=== PATIENT | female | born 1965 | race Hispanic/Latino ===

== ENCOUNTER → 2022-02-28 | Outpatient (CLI) | payer BC | END | disposition home or self-care (01) | LOC: RAH 08:55 | PROVIDERS: ATTEND Student in an Organized Health Care Education/Training Program | DX: M24.851 Other specific joint derangements of right hip, not elsewhere classified (principal); Z96.642 Presence of left artificial hip joint | CPT/HCPCS: 73721 ==

== ENCOUNTER → 2022-08-07 | Outpatient (CLI) | payer OTHER | END | disposition home or self-care (01) | LOC: OIH 13:58 | PROVIDERS: ATTEND Family Medicine | DX: Z13.6 Encounter for screening for cardiovascular disorders (principal) | CPT/HCPCS: 75571 ==

== ENCOUNTER 2023-01-22 16:00 | Observation (INO) | payer BC ==
[~2023-01-22] VITALS: Ht 162.6 cm; Wt 80.4 kg
[2023-01-24 11:13] VITALS: BP 152/69; PULSE 85; RESP 18
[2023-01-24] MEDS ORDERED: OMEG-116 PO (12:46)
[2023-01-24] MEDS ORDERED: CALC-866 PO (12:46)
[2023-01-24] MEDS ORDERED: CETI10TA57 PO (12:46)
[2023-01-24] MEDS ORDERED: POTA99CA PO (12:46)
[2023-01-24] MEDS ORDERED: SUMA25TA9 PO (12:46)
[2023-01-24] MEDS ORDERED: CYCL-309 PO (12:46)
[2023-01-24] MEDS ORDERED: OM3/1CAP3 PO (12:46)
[2023-01-24] MEDS ORDERED: OMEP40CA21 PO (12:46)
[2023-01-24] MEDS ORDERED: BIOT1TAB7 PO (12:46)
[2023-01-24] MEDS ORDERED: TRAZ-185 PO (12:46)
[2023-01-24] MEDS ORDERED: FOLI1 PO (12:46)
[2023-01-24] MEDS ORDERED: FERR-82 PO (12:46)
[2023-01-24] MEDS ORDERED: MAGN400C PO (12:46)
[2023-01-29] VITALS (29 sets, daily range): BP systolic 103–175; BP diastolic 52–128; PULSE 59–97; RESP 12–20; O2SAT 98
[2023-01-29] MEDS ORDERED: LACTATED RINGERS 1000ML 1,000 ML IV ONE (05:16)
[2023-01-29] MEDS: CEFAZOLIN SODIUM 2 GM VIAL ONE ×2 (05:45→07:22)
[2023-01-29] MEDS ORDERED: DEXAMETHASONE SOD PHOSPHATE 10MG/ML 1ML VIAL ONE (06:24)
[2023-01-29] MEDS ORDERED: SUCCINYLCHOLINE 200MG/10ML SYR ONE (06:24)
[2023-01-29] MEDS ORDERED: LIDOCAINE PF 100MG/5ML (2%) SYRINGE 5ML ONE (06:24)
[2023-01-29] MEDS ORDERED: ONDANSETRON 4MG INJ ONE (06:24)
[2023-01-29] MEDS ORDERED: ROCURONIUM BROMIDE 10MG/1ML 5ML VL ONE ×2 (06:25→08:11)
[2023-01-29] MEDS ORDERED: GLYCOPYRROLATE 1 MG/5 ML SYRINGE ONE (06:25)
[2023-01-29] MEDS ORDERED: MIDAZOLAM HCL 1 MG/ML 2ML VIAL ONE ×2 (06:25→07:22)
[2023-01-29] MEDS ORDERED: FENTANYL CITRATE PF 50 MCG/1 ML 2ML VIAL ONE ×2 (06:25→07:25)
[2023-01-29] MEDS ORDERED: NEOSTIGMINE METHYLSULFATE 1MG/ML IV ONE (06:25)
[2023-01-29] MEDS ORDERED: PROPOFOL 10 MG/ML 20ML VIAL IV ONE ×2 (06:25→07:35)
[2023-01-29] MEDS ORDERED: EPINEPHRINE PF 1MG (1:1,000) 1 MG/ML AMP ONE (06:28)
[2023-01-29] MEDS ORDERED: 0.9%NACL 48.45 ML, ROPIVACAINE 0.5% 49.25ML, EPINEPH 0.5MG KETOROLAC 30MG,CLONIDINE 80MCG IV PRN ×5 (07:00)
[2023-01-29] MEDS ORDERED: TRANEXAMIC ACID 1000MG/10ML ONE (07:09)
[2023-01-29] MEDS ORDERED: TRANEXAMIC ACID 1000MG/10ML IV ONE (07:53)
[2023-01-29] MEDS ORDERED: CEFAZOLIN SODIUM 1 GM VIAL ONE (08:05)
[2023-01-29] MEDS ORDERED: GENTAMICIN SULFATE 80 MG/2 ML VIAL ONE (08:06)
[2023-01-29] MEDS ORDERED: DIPHENHYDRAMINE HCL 25 MG CAPSULE PO SCH (12:00)
[2023-01-29] MEDS ORDERED: DIPHENOXYLATE HCL/ATROPINE 2.5/0.025 MG TAB PO PRN (12:00)
[2023-01-29] MEDS ORDERED: ONDANSETRON 4MG INJ IVP PRN (12:00)
[2023-01-29] MEDS ORDERED: HYDROMORPHONE PCA 10 MG/50 ML 50 ML IV PRN (12:00)
[2023-01-29] MEDS ORDERED: LACTULOSE 20 GM/30 ML UDCUP PO PRN (12:00)
[2023-01-29] MEDS ORDERED: ZINC OXIDE OINT 30GM TUBE TP PRN (12:00)
[2023-01-29] MEDS ORDERED: MAG/ALUM/SIMETH 30 ML UDCUP PO PRN (12:00)
[2023-01-29] MEDS ORDERED: BENZOCAINE/MENTH/CETYLPYRD CL 1 EACH LOZENGE MM PRN (12:00)
[2023-01-29] MEDS ORDERED: ACETAMINOPHEN 325 MG TAB PO PRN ×2 (12:00)
[2023-01-29] MEDS ORDERED: DIPHENHYDRAMINE HCL 25 MG CAPSULE PO PRN (12:00)
[2023-01-29] MEDS: 0.9%NACL 1000ML 1,000 ML IV SCH (12:28)
[2023-01-29] MEDS ORDERED: GLUCAGON 1MG KIT 1 MG ML IM PRN (12:30)
[2023-01-29] MEDS ORDERED: SUMATRIPTAN SUCCINATE 25 MG TABLET PO PRN (12:30)
[2023-01-29] MEDS ORDERED: SIMETHICONE 80 MG TAB.CHEW PO SCH (12:30)
[2023-01-29] MEDS ORDERED: KCL 20 MEQ ERTAB PO PRN (12:30)
[2023-01-29] MEDS ORDERED: DEXTROSE 50%-WATER 50 ML DISP.SYRIN IV PRN (12:30)
[2023-01-29] MEDS ORDERED: POTASSIUM CHLORIDE 10% ELIXIR 20 MEQ/15 ML UDCUP PO PRN (12:30)
[2023-01-29] MEDS ORDERED: POTASSIUM CHLORIDE 20MEQ/100ML 100 ML IV PRN (12:30)
[2023-01-29] MEDS ORDERED: MAGNESIUM 2GM PREMIX 50ML 50 ML IV PRN (12:30)
[2023-01-29] MEDS ORDERED: SIMETHICONE 80 MG TAB.CHEW PO PRN (12:30)
[2023-01-29] MEDS ORDERED: CEFAZOLIN SODIUM 2 GM VIAL IVPB SCH (15:30)
[2023-01-29] MEDS ORDERED: TRAMADOL HCL 50 MG TABLET PO PRN (16:00)
[2023-01-29] MEDS ORDERED: COMPOUND IV REFRIGERATED 1 EACH IVSOLN MISC PRN (19:30)
[2023-01-29] MEDS: CEFAZOLIN SODIUM 3 GM in DEXTROSE 5%-WATER 100 ML IVPB SCH (20:23)
[2023-01-29] MEDS ORDERED: BISACODYL 10 MG SUPP.RECT RC PRN (21:00)
[2023-01-29] MEDS ORDERED: TRAZODONE HCL 50 MG TAB PO SCH (21:00)
[2023-01-29] MEDS: FAMOTIDINE 20MG TAB PO SCH (21:27)
[2023-01-30 03:14] VITALS: BP 109/65; PULSE 88; RESP 18
[2023-01-30 03:51] LABS: HEMATOCRIT 29.6 % (36-48); MEAN CORPUSCULAR HEMOGLOBIN 29.7 pg (27.0-33.0); MEAN CORPUSCULAR HGB CONC 33.1 g/dL (32.0-36.0); MEAN CORPUSCULAR VOLUME 89.7 fL (79-99); RED BLOOD CELL COUNT(AUTO) 3.3 MIL/uL (4.00-5.50); RED CELL DISTRIBUTION WIDTH 12.5 % (11.0-15.5)
[2023-01-30] MEDS: 0.9%NACL 1000ML 1,000 ML IV SCH (04:18)
[2023-01-30 04:19] LABS: CREATININE 0.7 mg/dL (0.5-1.5); MAGNESIUM 2.1 mg/dL (1.80-2.40); POTASSIUM 3.6 mmol/L (3.5-5.1)
[2023-01-30] MEDS: CEFAZOLIN SODIUM 3 GM in DEXTROSE 5%-WATER 100 ML IVPB SCH (04:19)
[2023-01-30 08:00] VITALS: BP 111/67; PULSE 89; RESP 18; O2SAT 98
[2023-01-30] MEDS: FAMOTIDINE 20MG TAB PO SCH (08:23)
[2023-01-30 08:24] VITALS: TEMP 98.1
[2023-01-30] MEDS ORDERED: RIVAROXABAN 10 MG TABLET PO SCH (09:00)
[2023-01-30 11:27] VITALS: BP 109/66; PULSE 88; RESP 16
== END 2023-01-30 16:19 | disposition home health service (06) ==
LOC: DAHIP 01-29 05:03 → 4AH 01-29 11:15 → EDSTATUS 01-29 17:00
PROVIDERS: ADMIT Orthopaedic Surgery; ATTEND Orthopaedic Surgery
DX: M17.11 Unilateral primary osteoarthritis, right knee (principal); G43.909 Migraine, unspecified, not intractable, without status migrainosus; E78.5 Hyperlipidemia, unspecified; F41.9 Anxiety disorder, unspecified; K21.9 Gastro-esophageal reflux disease without esophagitis; E66.9 Obesity, unspecified; F32.A Depression, unspecified; K57.32 Diverticulitis of large intestine without perforation or abscess without bleeding; Z90.11 Acquired absence of right breast and nipple; Z90.710 Acquired absence of both cervix and uterus; Z68.30 Body mass index [BMI] 30.0-30.9, adult
CPT/HCPCS: 93005; 87641; 27447; 96365; 96366 ×3; 96375; 96368; 97161; 97116 ×3; 97530 ×6; 83735; 80048; 85027; 36415; A6260; G0378 ×25; G0379; A4510; A4663; J7120 ×2; A4215 ×2; A4649 ×4; J3010 ×2; J0690 ×3; J3490 ×5; J1170; J0330; J1100; J2001; J0171; J1580; J2250 ×2; J7060; J2704 ×2; J2405 ×2; J2710; A6223; C1763 ×2; C1776; A5120; A4223; A4222; A4221; A6450; J7030